=== PATIENT | male | born 1955 | race Caucasian/White ===

== ENCOUNTER 2016-12-01 10:55 | Emergency (ER) | payer MEDICAID ==
[~2016-12-01] VITALS: Ht 172.7 cm; Wt 63.5 kg
[2016-12-01] MEDS ORDERED: HYDROmorphone HCL 2 MG/ML VL IV ONE (13:30)
[2016-12-01] MEDS ORDERED: ONDANSETRON HCL 4 MG/2 ML VIAL IV ONE (13:30)
[2016-12-01] MEDS ORDERED: LIDOCAINE 1% HCL (LOCAL ANESTH.) INJ 20ML MDV ID ONE (15:15)
[2016-12-01] MEDS ORDERED: BACITRACIN TOP OINT 1 UD PKG TOP ONE (15:15)
[2016-12-01 16:15] VITALS: BP 143/88
== END 2016-12-01 17:33 | disposition home or self-care (01) ==
LOC: EDBD 10:55 → ER 10:56
DX: S42.002A Fracture of unspecified part of left clavicle, initial encounter for closed fracture (principal); S32.512A Fracture of superior rim of left pubis, initial encounter for closed fracture; S51.812A Laceration without foreign body of left forearm, initial encounter; S50.01XA Contusion of right elbow, initial encounter; F17.210 Nicotine dependence, cigarettes, uncomplicated; W18.39XA Other fall on same level, initial encounter; Y93.89 Activity, other specified; Y92.89 Other specified places as the place of occurrence of the external cause; Y99.8 Other external cause status
CPT/HCPCS: 12005; 72192; 73030; 73070; 73502; 94761; 96374; 96375; 99284; J1170; J2001; J2405

== ENCOUNTER 2016-12-08 11:23 | Emergency (ER) | payer MEDICAID ==
[~2016-12-08] VITALS: Ht 172.7 cm; Wt 63.5 kg
[2016-12-08 11:29] VITALS: BP 112/68
== END 2016-12-08 14:13 | disposition home or self-care (01) ==
LOC: ER 11:26
DX: S51.812D Laceration without foreign body of left forearm, subsequent encounter (principal); F17.210 Nicotine dependence, cigarettes, uncomplicated; Z90.89 Acquired absence of other organs; Z48.02 Encounter for removal of sutures; Z76.0 Encounter for issue of repeat prescription

== ENCOUNTER 2016-12-16 11:37 | Emergency (ER) | payer MEDICAID ==
[~2016-12-16] VITALS: Ht 172.7 cm; Wt 63.5 kg
[2016-12-16 12:12] VITALS: BP 107/67
== END 2016-12-16 12:45 | disposition home or self-care (01) ==
LOC: ER 11:37
DX: S51.812D Laceration without foreign body of left forearm, subsequent encounter (principal); F17.210 Nicotine dependence, cigarettes, uncomplicated; Z90.89 Acquired absence of other organs; Z48.02 Encounter for removal of sutures

== ENCOUNTER 2018-04-25 02:57 | Emergency (ER) | payer MEDICAID, OTHER ==
[~2018-04-25] VITALS: Ht 180.3 cm; Wt 81.6 kg
[2018-04-25 04:04] LABS: Eosinophils # (auto) 0.1 uL; Lymphocytes # (auto) 1.4 uL; Neutrophils # (auto) 4.5 uL; Nucleated Red Blood Cells % 0.1 %
[2018-04-25 04:06] LABS: Basophils # (auto) 0.1 uL; Basophils % (auto) 0.9 % (0.0-2.0); Eosinophils % (auto) 1.4 % (0.0-7.0); Hemoglobin 16.5 g/dL (13.5-17.5); Lymphocytes % (auto) 19.9 % (10.0-50.0); Mean Corpuscular Hemoglobin 35.1 pg (28.0-32.0); Mean Corpuscular Hgb Conc. 34.4 g/dL (32.0-36.0); Monocytes # (auto) 0.9 uL; Neutrophils % (auto) 64.8 % (37.0-80.0); Platelet Count (auto) 228 10^3/uL (140-450); Red Blood Cells 4.71 10^6/uL (4.5-5.90)
[2018-04-25 04:22] LABS: Salicylate 2.5 mg/dL (2.8-20.0)
[2018-04-25 04:25] LABS: Albumin 3.8 g/dL (3.4-5.0); BUN/Creatinine Ratio 18.8; Calcium 8.5 mg/dL (8.5-10.1); Magnesium 2.7 mg/dL (1.6-2.6)
[2018-04-25 04:26] LABS: Acetaminophen < 2.0 ug/mL (10-30)
[2018-04-25 04:27] LABS: Bilirubin, Total 0.2 mg/dL (0.2-1.0); Total Protein 7.5 g/dL (6.4-8.2)
[2018-04-25] MEDS ORDERED: THIAMINE 100mg/ml INJ (200mg/2ml VIAL) IV ONE (04:45)
[2018-04-25] MEDS ORDERED: SODIUM CHLORIDE 0.9% 1,000 ML IV ONE (04:45)
[2018-04-25 05:55] LABS: Urine Bacteria NONE SEEN /hpf (None Seen); Urine Blood Negative /uL (Negative); Urine Specific Gravity 1.004 (1.001-1.035); Urine WBC <1 /hpf (0 - 3)
[2018-04-25 06:24] LABS: Amphetamine Screen, Urine NEGATIVE (NEGATIVE); Barbiturate Scree,Urine NEGATIVE (NEGATIVE); Benzodiazephine Screen, Urine NEGATIVE (NEGATIVE); Cannabinoid Screen, Urine NEGATIVE (NEGATIVE); Cocaine Screen, Urine NEGATIVE (NEGATIVE); Opiate Scree,Urine NEGATIVE (NEGATIVE); Phencyclidine Screen, Urine NEGATIVE (NEGATIVE)
[2018-04-25 12:12] VITALS: BP 131/81
== END 2018-04-25 12:51 | disposition home or self-care (01) ==
LOC: ER 02:57 → EDBD 02:57 → EDUNIT# 02:57 → ER 12:51
DX: F10.129 Alcohol abuse with intoxication, unspecified (principal); R41.82 Altered mental status, unspecified
CPT/HCPCS: 36415; 70450; 71045; 80053; 80307; 80320; 80329; 81001; 83735; 85025; 93005; 96361; 96374; 99285; J3411; J7030